=== PATIENT | male | born 1945 | race Caucasian/White ===

== ENCOUNTER → 2024-06-28 22:13 | Emergency (ER) | payer MEDICARE, OTHER | END | disposition EXP | LOC: DL.ED 22:13 | DX: I46.9 Cardiac arrest, cause unspecified (principal); E03.9 Hypothyroidism, unspecified; Z79.51 Long term (current) use of inhaled steroids; Z79.890 Hormone replacement therapy; Z79.899 Other long term (current) drug therapy | CPT/HCPCS: 82947; 92950; 99285; 99285-25 ==